=== PATIENT | male | born 1975 | race Asian ===

== ENCOUNTER 2020-08-05 11:15 | Outpatient (RCR) | payer BC, SELFPAY ==
[2020-07-19 12:23] VITALS: BMI 20.7
--- NOTE | 2020-07-19 12:56 | PC.ADMIT ---
Patient is a 45 year old male who started the program today advised by his prescriber Lizzy Beasley d/t increase in depression symptoms including passive SI, feelings of hoplessness and helplessness and increased anxiety with panic. Pt reports that he is not able to function and that his symptoms are causing him to fall behind at work. Patient drinks ETOH 1-2 drinks sometimes more every night for the past few years. He stated that on more than a few times a year he has drank until he blacks out. Pt stated he blacked out on Sunday and is feeling guilty that he did this. He stated, alcohol is evil , I didn't intend to drink, it spiraled out of control . Pt talked about wanting to stop drinking. Educate patient on the effects of ETOH on mental and physical health and the effects on mixing his prescription medications with ETOH as well. Patient given information about online substance use groups that are available and encouraged him to attend for more support. Also talked to patient about utilizing medication assisted treatment with Naltrexone. Patient is alert and oriented x4. Calm and cooperative. Tearful at times. Denied SI stating, I would never in a million years do it, I have support from my family . Pt gave verbal permission to email him a copy of his safety plan and agrees to utilize if needed.
--- NOTE | 2020-07-19 15:55 | HO.PS.ADMBH ---
HPI Chief Complaint: depression Sources of Information: patient interviewed and chart reviewed HPI Narrative: 45 yo male, referred by his out patient prescriber, Ceci Beasley MANNEQUIN MOUNTER for an increase in depressive and anxious sx along with passive SI, guilt, and SIBS. PHQ-9 score is 19. 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 Also describes having poor boundaries and needs to work on these to present well with others. Reports meds are needed, however, he has resistance and has had intermittent compliance with his outpatient team. Past Psychiatric History: In Pt: Denies Out Pt: Dedrick White-psychotherapy; Ceci Beasley-psychopharmacology (message left with pt's permission) Trials: Prozac, Paxil, Effexor, Lorazepam, Abilify, Wellbutrin- sexual SE reported, Lexapro Medical Evaluation Reviewed: No (NA) [facility] Medical History Exercise-induced asthma Family History: Alcoholism, Agoraphobia, Depression, Anxiety Social History: Anabaptist upbringing. 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 Cannabis on occasion Denies substances are a problem Trauma History: Denies, yet acknowledges a difficult upbringing Diagnostics Vital Signs (24Hr): Body Mass Index 20.7 Labs Labs: No diagnostics in over a year. Per pt request order sent to [facility], [facility] for CMP, CBCD, Lipids, B12, Folate, TSH, FT4, A1C, B12, Mg, Vit D. Meds/Allergies Allergies Allergies Allergy/AdvReac Type Severity Reaction Status Date / Time fish derived [fish] Allergy Unknown Verified 07/19/20 12:22 peanut Allergy Anaphylaxis Verified 07/19/20 12:22 shellfish derived Allergy Unknown Verified 07/19/20 12:22 tree nut Allergy Anaphylaxis Verified 07/19/20 12:22 Mental Status Exam Mental Status Exam Patient Appearance: Fatigued Patient Orientation: Person, Place, Time and Situation Level of Consciousness: Awake, Restless and Alert Patient Behavior: Talkative, Restless, Anxious and Fatigued Mood Description: Withdrawn, Depressed, Anxious, Sad, Nervous and Apprehensive Affect Description: Constricted Patient Cognition Impaired: No Ability to Follow Directions: Good Speech Pattern: Clear, Perseverating, Appropriate and Spontaneous Speech Memory Description: Intact Hallucinations: None Delusions: Not Present Thought Process: Distracted and Rumination Thought Content: positive for [place], positive for Circumstantial, positive for Goal Oriented, positive for Perseveration and positive for Suicidal Ideation (passive, without plan or intent currently) Depressive Symptoms: Increased Anxiety, Diff. Making Decisions, Increased Irritability, Loss of Int. in Activity, Feelings of Worthlessness, Hopelessness, Isolating-Friends/Family, Feelings of Guilt, Unhappiness, Increased Fatigue, Thoughts of /Suicide (passive, without current plan or intent), Low Self Esteem, Loss of Energy and Difficulty Concentrating Abnormal Motor Activity Signs and Symptoms: Restlessness Judgement: Good Assessment & Plan Assessment & Plan (1) Major depressive disorder, recurrent severe without psychotic features: Status: Acute Code(s): F33.2 - Major depressive disorder, recurrent severe without psychotic features Assessment and Plan: Increase Lexapro to 20 mg daily. Message left with Ceci Beasley MANNEQUIN MOUNTER to coordinate pt's psychopharmacolgy treatment plan. Labs-Fax to [facility], [facility] for CMP, CBCD, Lipids, TSH, FT4, Vit B12, Folate, Mg Vit D, A1C Pt to discuss with parents what their medications trials have produced so we may work on a clearer picuture of what has been effective for their treatment. Certification I certify that partial hospital treatment is medically necessary due to the symptoms and problems resulting from the patient's mental illness and the failure to treat the patient at the partial hospital level of care would likely result in the patient requiring inpatient psychiatric care which could not be prevented at a less intensive level of care.
--- NOTE | 2020-07-21 14:53 | HO.PHPPROGNO ---
Subjective Subjective Date of Service: 07/21/20 Reason For Visit: F 31.81 Interim History: Return call from Ceci Beasley NP who has worked with pt for 3.5 years, tentative dx of bipolar II. She reports hx Luvox, Lamictal, Propranolol, Ativan, Abilify trials. Pt is anxious about medications, has stopped with initial SE without consultation, hx of sx severity with paranoia, delusional content, fear and use of alcohol to self-medicate. Pt reports he did check with parents-Paxil was an effective medication they worked with by history. Pt is willing to trial medications- reports he is suffering with severe sx.. Review of Latuda, Trileptal. Believes Latuda will target sx appropriately. Insurance PA completed at ([employer]). Latuda authorized 07/21/20 - 07/21/22, . Medication Compliance: Yes Side effects from medications: No Attending Groups: Yes Review of Systems Reports behavioral changes Psychiatric: Reports anxiety, Reports behavioral changes, Reports depression, Reports difficulty concentrating, Reports hopelessness, Reports irritability, Reports anhedonia, Reports mood swings and Reports panic attacks Mental Status Exam Mental Status Exam Patient Orientation: Person, Place, Time and Situation Level of Consciousness: Awake, Appropriate and Alert Patient Behavior: Appropriate, Talkative, Cooperative, Anxious and Fatigued Mood Description: Depressed and Anxious Affect Description: Constricted Patient Cognition Impaired: No Ability to Follow Directions: Excellent Speech Pattern: Clear, Appropriate and Spontaneous Speech Memory Description: Intact Hallucinations: None Delusions: Not Present Thought Process: Intact and Distracted Thought Content: positive for Intact and positive for Perseveration Depressive Symptoms: Increased Anxiety, Diff. Making Decisions, Loss of Int. in Activity, Hopelessness, Unhappiness, Increased Fatigue, Low Self Esteem, Loss of Energy and Difficulty Concentrating Judgement: Fair Diagnostics Vital Signs (24Hr): Body Mass Index 20.7 Labs Labs: Orders sent to [facility], [place]- results pending Assessment & Plan Assessment & Plan (1) Bipolar II disorder: Status: Acute Code(s): F31.81 - Bipolar II disorder Patient educated on: diagnosis, medication risk/benefits and therapeutic strategies Informed Consent: understands and further education needed Reason for contiued partial hosp. stay Substantial Risk for: inability to function and rapid decompensation Certification I certify that partial hospital treatment is medically necessary due to the symptoms and problems resulting from the patient's mental illness and the failure to treat the patient at the partial hospital level of care would likely result in the patient requiring inpatient psychiatric care which could not be prevented at a less intensive level of care. Greater than 50% of the session was spent on counseling and/or coordination of care Discharge Plan Discharge Attending provider: Tyler Sands Medications: New escitalopram oxalate [Lexapro] 20 mg tablet 20 mg PO DAILY Qty: 30 RF: 0 Latuda 20 mg tablet 20 mg PO QPM Qty: 14 RF: 0 Discontinued escitalopram oxalate [Lexapro] 10 mg Tablet 10 mg PO DAILY RF: 0 No Action trazodone 50 mg Tablet 50 mg PO BEDTIME RF: 0 lorazepam 0.5 mg Tablet See Rx Instructions .ROUTE .COMPLEX PRN (Reason: Anxiety) RF: 0 albuterol sulfate [ProAir HFA] 90 mcg/actuation Hfa Aerosol Inhaler 2 puff INHALATION QID PRN (Reason: Wheezing) RF: 0
--- NOTE | 2020-07-26 11:53 | PM.EVENT ---
Event Note Date of Service: 07/26/20 Event Note: Message from pt. Latuda trial is not affordable for him. He has met his 2020 insurance deductible, however a one month supply of 20 mg Latuda will cost $700. Discussed Trileptal with pt. We will trial an initial dosage of 300 mg at bedtime beginning this evening.
--- NOTE | 2020-07-27 15:51 | HO.PHPPROGNO ---
Subjective Subjective Date of Service: 07/28/20 Reason For Visit: F 31.81 Interim History: Pt has several friends/colleagues in psychiatry. They have given him several recommendations for trials. These were discussed along with [employer] Testing. Review of [place], rationale, SE, risks, benefits. Medication Compliance: Yes Side effects from medications: No Attending Groups: Yes Review of Systems Reports behavioral changes Psychiatric: Reports anxiety, Reports behavioral changes, Reports depression, Reports difficulty concentrating, Reports irritability and Reports anhedonia Mental Status Exam Mental Status Exam Patient Orientation: Person, Place, Time and Situation Level of Consciousness: Awake, Appropriate and Alert Patient Behavior: Appropriate Mood Description: Anxious and Nervous Affect Description: Anxious Patient Cognition Impaired: No Ability to Follow Directions: Excellent Speech Pattern: Clear, Appropriate and Spontaneous Speech Memory Description: Intact Hallucinations: None Delusions: Not Present Thought Process: Intact Thought Content: positive for Intact Depressive Symptoms: Increased Anxiety, Diff. Making Decisions, Loss of Int. in Activity, Feelings of Worthlessness, Hopelessness, Feelings of Guilt, Unhappiness and Difficulty Concentrating Judgement: Good Diagnostics Vital Signs (24Hr): Body Mass Index 20.7 Assessment & Plan Assessment & Plan (1) Major depressive disorder, recurrent severe without psychotic features: Status: Acute Code(s): F33.2 - Major depressive disorder, recurrent severe without psychotic features Assessment and Plan: Continue current plan of care. Will forward [employer] information to pt. Certification I certify that partial hospital treatment is medically necessary due to the symptoms and problems resulting from the patient's mental illness and the failure to treat the patient at the partial hospital level of care would likely result in the patient requiring inpatient psychiatric care which could not be prevented at a less intensive level of care. Greater than 50% of the session was spent on counseling and/or coordination of care Discharge Plan Discharge Attending provider: Tyler Sands Medications: New escitalopram oxalate [Lexapro] 20 mg tablet 20 mg PO DAILY Qty: 30 RF: 0 lithium carbonate 150 mg capsule 150 mg PO BEDTIME Qty: 14 RF: 0 Discontinued escitalopram oxalate [Lexapro] 10 mg Tablet 10 mg PO DAILY RF: 0 No Action trazodone 50 mg Tablet 50 mg PO BEDTIME RF: 0 lorazepam 0.5 mg Tablet See Rx Instructions .ROUTE .COMPLEX PRN (Reason: Anxiety) RF: 0 albuterol sulfate [ProAir HFA] 90 mcg/actuation Hfa Aerosol Inhaler 2 puff INHALATION QID PRN (Reason: Wheezing) RF: 0
--- NOTE | 2020-08-02 09:23 | P.PNPSP_ITS ---
Subjective Subjective Date of Service: 08/02/20 Reason For Visit: F 31.81 Interim History: I was feeling over-charged on and Sunday, but that tempered over the weekend. I am not sleeping that well, but it ebbs and flows. Reports lability decrease over the weekend. OMAR is an issue along with difficulty in focus. By hx, reports being tested for ADHD twice and being told he does not have this diagnosis. Asked about Adderall trial. Discussed focus sx as depressive, anxious and discussed options. Pt would like to continue [place], will discuss with resources for titration this week or changes. Reports some improvement overall. Medication Compliance: Yes Side effects from medications: No Attending Groups: Yes Review of Systems Reports behavioral changes Psychiatric: Reports abnormal sleep pattern, Reports behavioral changes, Reports difficulty concentrating (trouble with focus) and Reports mood swings Mental Status Exam Mental Status Exam Patient Orientation: Person, Place, Time and Situation Level of Consciousness: Awake, Appropriate and Alert Patient Behavior: Appropriate and Cooperative Mood Description: Anxious Affect Description: Constricted Patient Cognition Impaired: No Ability to Follow Directions: Excellent Speech Pattern: Clear, Appropriate and Spontaneous Speech Memory Description: Intact Hallucinations: None Delusions: Not Present Thought Process: Intact Thought Content: positive for [place], positive for Circumstantial, positive for Goal Oriented and positive for Logical Depressive Symptoms: Increased Anxiety, Insomnia, Difficulty Sleeping (OMAR) and Difficulty Concentrating (difficulty with focus) Judgement: Good Diagnostics Vital Signs (24Hr): Body Mass Index 20.7 Assessment & Plan Assessment & Plan (1) Bipolar II disorder: Status: Acute Code(s): F31.81 - Bipolar II disorder Assessment and Plan: -Continue current regime -Pt will consider titration of medications. Certification I certify that partial hospital treatment is medically necessary due to the symptoms and problems resulting from the patient's mental illness and the failure to treat the patient at the partial hospital level of care would likely result in the patient requiring inpatient psychiatric care which could not be prevented at a less intensive level of care. Greater than 50% of the session was spent on counseling and/or coordination of care Discharge Plan Discharge Attending provider: Tyler Sands Medications: New escitalopram oxalate [Lexapro] 20 mg tablet 20 mg PO DAILY Qty: 30 RF: 0 lithium carbonate 150 mg capsule 150 mg PO BEDTIME Qty: 14 RF: 0 Discontinued escitalopram oxalate [Lexapro] 10 mg Tablet 10 mg PO DAILY RF: 0 No Action trazodone 50 mg Tablet 50 mg PO BEDTIME RF: 0 lorazepam 0.5 mg Tablet See Rx Instructions .ROUTE .COMPLEX PRN (Reason: Anxiety) RF: 0 albuterol sulfate [ProAir HFA] 90 mcg/actuation Hfa Aerosol Inhaler 2 puff INHALATION QID PRN (Reason: Wheezing) RF: 0
--- NOTE | 2020-08-06 07:57 | PC.NURSE ---
Referral made to [facility] for client to attend their DBT group
== END 2020-08-05 23:55 | disposition home or self-care (01) ==
LOC: HO.PHPA 11:15
PROVIDERS: Visit Provider Psychiatry & Neurology Psychiatry
DX: F33.2 Major depressive disorder, recurrent severe without psychotic features (principal); Z79.899 Other long term (current) drug therapy
CPT/HCPCS: 90792; 90853; 99213